=== PATIENT | female | born 1965 | race Caucasian/White ===

== ENCOUNTER 2021-11-27 08:50 | Outpatient (CLI) | payer OTHER, SELFPAY ==
--- NOTE | ~2021-11-27 | MM_ITS ---
EXAMINATION: MM screening paige BI w anjelica HISTORY: Screening TECHNIQUE: Craniocaudal and mediolateral oblique 3-D tomosynthesis images were obtained and synthetic 2-D images were generated. CAD analysis was submitted and interpreted. COMPARISON: No prior mammogram is available for comparison at this institution. BREAST PARENCHYMAL COMPOSITION: Breast composed of scattered areas of fibroglandular density FINDINGS: There are multiple scattered masses throughout both breasts, partially obscured by fibrogla ndular tissue. There are no suspicious calcifications or focal architectural distortion. IMPRESSION: 1. Multiple bilateral breast masses. 2. Recommend follow-up complete bilateral breast ultrasound. BI-RADS Category 0: Incomplete: Needs additional imaging evaluation. Reviewed, dictated and finalized at location L.
== END 2021-11-27 08:51 | disposition home or self-care (01) ==
PROVIDERS: PCP Nurse Practitioner
DX: Z12.31 Encounter for screening mammogram for malignant neoplasm of breast (principal); R92.8 Other abnormal and inconclusive findings on diagnostic imaging of breast
CPT/HCPCS: 77063; 77067

== ENCOUNTER 2021-12-12 10:03 | Outpatient (CLI) | payer OTHER, SELFPAY ==
--- NOTE | ~2021-12-12 | US_ITS ---
US breast BI complete 12/12/2021 11:38 Indication: Bilateral breast masses seen on prior mammography. Procedure: High-resolution bilateral complete breast ultrasound including all 4 quadrants in the suba reolar locations Comparison: Mammogram dated 11/27/2021 Findings: Right breast: At 2:00, 1 cm from the nipple, there is a hypoechoic mass with internal some partial se ptation measuring up to 11 mm, likely benign complicated cyst or intramammary lymph node. At 7:00, 5 cm from the nipple, there is a septated cyst measuring 9 mm. Left breast at 3:00, 4 cm from the nipple, there is an oval hypoechoic mass with echogenic hilum or i nternal septation measuring 1.3 x 1.3 x 0.7 cm. No internal vascularity. At 10:00, 3 cm from the nipp le there is a cluster of microcysts measuring up to 1 cm greatest dimension. Impression: 1: Probable benign bilateral breast masses. BI-RADS CATEGORY 3-PROBABLY BENIGN FINDING RECOMMENDATION: Six-month follow-up diagnostic bilateral mammogram and ultrasound recommended. Reviewed, dictated and finalized at location A. Impression: 1: Probable benign bilateral breast masses. BI-RADS CATEGORY 3-PROBABLY BENIGN FINDING RECOMMENDATION: Six-month follow-up diagnostic bilateral mammogram and ultrasou nd recommended.
== END 2021-12-12 10:04 | disposition home or self-care (01) ==
PROVIDERS: Visit Provider Nurse Practitioner
DX: R92.8 Other abnormal and inconclusive findings on diagnostic imaging of breast (principal); N63.12 Unspecified lump in the right breast, upper inner quadrant; N63.25 Unspecified lump in the left breast, overlapping quadrants; N60.02 Solitary cyst of left breast; N60.01 Solitary cyst of right breast
CPT/HCPCS: 76641